=== PATIENT | male | born 1990 | race Caucasian/White ===

== ENCOUNTER 2017-04-09 03:53 | Emergency (ER) | payer OTHER ==
[~2017-04-09] VITALS: Ht 172.7 cm; Wt 77.1 kg
[2017-04-09 03:53] VITALS: BP_SYST 153
[2017-04-09 04:38] VITALS: BP_SYST 130
== END 2017-04-09 04:38 ==
LOC: SED 03:53
DX: Z02.89 Encounter for other administrative examinations (principal)